=== PATIENT | female | born 1985 | race Caucasian/White ===

== ENCOUNTER 2021-11-05 12:05 | Emergency (ER) | payer OTHER ==
[~2021-11-05] VITALS: Ht 170.2 cm; Wt 73.9 kg
[~2021-11-05 12:05] MED LIST: CIPRO500 MG PO; PROTONIX40 MG PO; ZOLOFT50 MG
== END 2021-11-05 13:32 | disposition home or self-care (01) ==
LOC: ER 12:05
DX: O26.892 Other specified pregnancy related conditions, second trimester (principal); Z3A.20 20 weeks gestation of pregnancy; M25.512 Pain in left shoulder

== ENCOUNTER 2022-03-11 07:13 | Inpatient (IN) | payer OTHER ==
[~2022-03-11] VITALS: Ht 167.6 cm; Wt 84.8 kg
[2022-03-11] MEDS ORDERED: SYNTHROID88 MCG PO (10:24)
[2022-03-11] MEDS ORDERED: PRENATAL TABLE1 EAC1 PO (10:24)
== END 2022-03-13 17:09 | disposition home or self-care (01) | DRG 807 ==
LOC: LDR 07:13 → OB/GYN 10:31
PROVIDERS: ADMIT Specialist; ATTEND Specialist
PROC: 10E0XZZ Delivery of Products of Conception, External Approach (ICD-10-PCS; principal; 2022-03-11)
PROC: 0KQM0ZZ Repair Perineum Muscle, Open Approach (ICD-10-PCS; 2022-03-11)
PROC: 4A1HXCZ Monitoring of Products of Conception, Cardiac Rate, External Approach (ICD-10-PCS; 2022-03-11)
DX: O70.1 Second degree perineal laceration during delivery (principal); Z37.0 Single live birth; Z3A.38 38 weeks gestation of pregnancy; Z20.822 Contact with and (suspected) exposure to COVID-19